=== PATIENT | female | born 1985 | race Caucasian/White ===

== ENCOUNTER 2017-09-24 11:00 | Emergency (ER) | payer MEDICAID, OTHER ==
[~2017-09-24] VITALS: Ht 165.1 cm; Wt 61.8 kg
[~2017-09-24 11:00] MED LIST: DOXY100C2 PO; OXYC1TAB7 PO
[2017-09-24 11:15] VITALS: BP 118/80
[2017-09-24] MEDS ORDERED: KETOROLAC 60 MG/2 ML IM ONE (11:30)
[2017-09-24] MEDS ORDERED: KETOROLAC 30 MG/1 ML ONE (11:37)
[2017-09-24] MEDS ORDERED: ONDANSETRON ODT 4 MG ONE (11:38)
[2017-09-24 11:45] LABS: MICROSCOPIC AUTO
[2017-09-24 11:46] LABS: CULTURE INDICATED? YES
[2017-09-24 11:59] LABS: BASOPHILS # (AUTO) 0.04 x10^3/uL (0-0.1); BASOPHILS % (AUTO) 1 % (0-1); EOSINOPHILS # (AUTO) 0.12 x10^3/uL (0-0.4); EOSINOPHILS % (AUTO) 2 % (1-7); LYMPHOCYTES # (AUTO) 1.73 x10^3/uL (1-3.4); LYMPHOCYTES % (AUTO) 27 % (22-44); MD NO; MEAN CORPUSCULAR HEMOGLOBIN 29.9 pg (27.0-34.8); MEAN CORPUSCULAR HGB CONC 33.4 g/dL (32.4-35.8); MEAN CORPUSCULAR VOLUME 89.6 fL (80-100); MEAN PLATELET VOLUME 8.8 fL (7.4-10.4); MONOCYTES # (AUTO) 0.28 x10^3/uL (0.2-0.8); MONOCYTES % (AUTO) 4 % (2-9); NEUTROPHILS # (AUTO) 4.31 x10^3/uL (1.8-6.8); NEUTROPHILS % (AUTO) 67 % (42-75); PLATELET COUNT 338 x10^3/uL (130-400); RED BLOOD COUNT 4.87 x10^6/uL (3.82-5.3); RED CELL DISTRIBUTION WIDTH 13.7 % (9.6-15.2)
[2017-09-24] MEDS ORDERED: ONDANSETRON ODT 4 MG PO ONE (12:00)
[2017-09-24 12:10] LABS: ALBUMIN 3.5 g/dL (3.4-5.0); ANION GAP 9 mmol/L (5-15); CALCIUM 8.5 mg/dL (8.5-10.1); CHLORIDE 108 mmol/L (98-107)
[2017-09-24 12:18] LABS: ALANINE AMINOTRANSFERASE 17 U/L (12-78); ALKALINE PHOSPHATASE 62 U/L (45-117); BILIRUBIN,TOTAL 0.4 mg/dL (0.2-1.0); TOTAL PROTEIN 7.6 g/dL (6.4-8.2)
== END 2017-09-24 12:38 | disposition home or self-care (01) ==
LOC: ED 11:41
DX: N30.00 Acute cystitis without hematuria (principal); N10 Acute pyelonephritis; J45.909 Unspecified asthma, uncomplicated; M06.9 Rheumatoid arthritis, unspecified; Z88.5 Allergy status to narcotic agent
CPT/HCPCS: 36415; 76770; 80053; 81001; 83690; 84703; 85025; 87086; 96372; 99285; J1885; Q0162

== ENCOUNTER 2019-08-11 16:58 | Emergency (ER) | payer OTHER ==
[~2019-08-11] VITALS: Ht 165.1 cm; Wt 66.7 kg
[2019-08-11 17:08] VITALS: BP 108/74
--- NOTE | 2019-08-11 18:09 | NUR ---
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
--- NOTE | 2019-08-11 18:28 | NUR ---
PT HAS CO BLOODY STOOL, PT DESCRIBES BRIGHT RED BLOOD. MODERATE AMOUNT. DENIES N/V. DENIES VOMITING BLOOD. NO ABDOMINAL PAIN. PT NOT ON BLOOD THINNERS.
--- NOTE | 2019-08-11 18:42 | NUR ---
Patient/Caregiver given discharge instructions and they have confirmed that they understand the instructions. Patient ambulatory with steady gait.
--- NOTE | 2019-08-11 18:42 | NUR ---
RN RESIDENT SERVICES DIRECTOR FOR [employer]
== END 2019-08-11 19:08 | disposition home or self-care (01) ==
LOC: ED 18:33
DX: K64.8 Other hemorrhoids (principal); J45.909 Unspecified asthma, uncomplicated
CPT/HCPCS: 99285